=== PATIENT | female | born 1975 | race Caucasian/White ===

== ENCOUNTER 2019-05-24 07:47 | Emergency (ER) | payer BC ==
[~2019-05-24] VITALS: Ht 165.1 cm; Wt 95.5 kg
[2019-05-24 08:03] VITALS: BP 133/92; PULSE 98; TEMP 96.5
[2019-05-24] MEDS ORDERED: AMOXICILLIN 8751 TAB PO (09:05)
== END 2019-05-24 09:24 | disposition home or self-care (01) ==
LOC: COL.ER 07:47
DX: S61.214A Laceration without foreign body of right ring finger without damage to nail, initial encounter (principal); F32.9 Major depressive disorder, single episode, unspecified; F41.9 Anxiety disorder, unspecified; Z88.5 Allergy status to narcotic agent; W54.0XXA Bitten by dog, initial encounter; Y92.009 Unspecified place in unspecified non-institutional (private) residence as the place of occurrence of the external cause

== ENCOUNTER → 2019-09-12 | Outpatient (CLI) | payer BC ==
[~2019-09-12] MED LIST: AMOXICILLIN 8751 TAB PO
== END ==
LOC: MC.RAD 14:57
DX: Z12.31 Encounter for screening mammogram for malignant neoplasm of breast (principal); N63.10 Unspecified lump in the right breast, unspecified quadrant; N63.20 Unspecified lump in the left breast, unspecified quadrant

== ENCOUNTER → 2019-10-24 | Outpatient (CLI) | payer BC | LOC: MC.RAD 12:56 | DX: N60.01 Solitary cyst of right breast (principal); N63.32 Unspecified lump in axillary tail of the left breast ==

== ENCOUNTER → 2020-10-26 | Outpatient (CLI) | payer BC | LOC: MC.RAD 06:57 | DX: Z12.31 Encounter for screening mammogram for malignant neoplasm of breast (principal); N64.89 Other specified disorders of breast ==

== ENCOUNTER → 2020-11-02 | Outpatient (CLI) | payer BC | LOC: MC.RAD 10:49 | DX: N60.82 Other benign mammary dysplasias of left breast (principal); N60.81 Other benign mammary dysplasias of right breast ==